=== PATIENT | female | born 1970 ===

== ENCOUNTER 2017-03-16 12:55 | Emergency (ER) | payer OTHER ==
[2017-03-16 12:55] VITALS: BMI 34.8
[2017-03-16 13:35] VITALS: O2SAT 99
[2017-03-16] MEDS ORDERED: Naproxen 550 mg Tab PO STA (14:00)
--- NOTE | 2017-03-16 14:58 | RAD ---
PROCEDURE: Right Hand Radiographs. HISTORY: pain COMPARISON: None. FINDINGS: BONES: Normal. No fracture. JOINTS: Normal. No osteoarthritic changes. SOFT TISSUES: Normal. OTHER FINDINGS: None. IMPRESSION: Normal right hand radiographs.
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
[2017-03-16 15:18] VITALS: BP 125/79; PULSE 84; RESP 16; TEMP 98.5
== END 2017-03-16 15:22 | disposition home or self-care (01) ==
LOC: ED 12:55
DX: S60.221A Contusion of right hand, initial encounter (principal); Y04.0XXA Assault by unarmed brawl or fight, initial encounter; Y92.89 Other specified places as the place of occurrence of the external cause